=== PATIENT | male | born 1955 | race Two or more races ===

== ENCOUNTER 2019-06-15 14:32 | Emergency (ER) | payer MEDICAID ==
[~2019-06-15] VITALS: Ht 177.8 cm; Wt 68.0 kg
[~2019-06-15 14:32] MED LIST: ACYCLOVIR800 MG ORAL; BACTRIM-DS1 EA ORAL; FLUOXETINE HCL20 MG ORAL; NORVIR100 MG ORAL; REYATAZ150 MG ORAL; TRUVADA 200 MG1 EAC1 ORAL
[2019-06-15 14:39] VITALS: BP 121/89
[2019-06-15] MEDS ORDERED: traMADol 50mg tab ORAL ONE (16:00)
--- NOTE | 2019-06-15 16:15 | Emergency Room Report ---
History of Present Illness General Chief Complaint: Flu Like Symptoms Source: Patient Present Illness HPI 64 YO Male presents to the ED c/o Cough with increased sputum production x 2 weeks with chills, 10/10 in severity body aches and increased fatigue. Hx of AIDS, HTN, Neuropathic pain, Heart Murmur, and HTN. Pt. reports he has an unknown CD4 count. He reports he is taking his antiretroviral meds. He denies fevers or chills. he denies feeling SOB. Denies CP or palpitations. He is also c/o needing medication refills for his current exacerbation of chronic psoriasis symptoms, in addition to Lyrica refill request for hx of neuropathic pain. Denies recent travel. Denies contact with persons who have tested positive for or are under investigation/quarantine for COVID-19. Denies CP, Palpitations, LOC, AMS, dizziness, Changes in Vision, Sensation, paresthesias, or a sudden severe headache. COVID-19 risk:Contact w/high r: No COVID-19 risk:Travel to affect: No Has patient experienced [place]: Yes Coronavirus symptoms experienc: Shortness of Breath, Cough, Runny Nose, Flu- Like Symptoms Allergies: Coded Allergies: GABAPENTIN (Verified Allergy, Severe, 12/25/14) Patient History Past Medical History: see triage record, HIV Past Surgical History: none Pertinent Family History: none Social History: Reports: smoking Reviewed Nursing Documentation: PMH: Agreed; PSxH: Agreed Nursing Documentation-PMH Past Medical History: No History, Except For Hx Hypertension: Yes - murmur Hx Neurological Problems: Yes - BLE neuropathy, slipped disk Review of Systems All Other Systems: negative except mentioned in HPI Physical Exam Vital Signs Date Time Temp Pulse Resp B/P (MAP) Pulse Ox O2 Delivery O2 Flow Rate FiO2 06/15/19 14:39 98.2 83 16 121/89 (100) 96 Room Air Sp02 EP Interpretation: reviewed, normal General Appearance: no apparent distress, alert, GCS 15, non-toxic Head: normocephalic, atraumatic Eyes: bilateral eye normal inspection, bilateral eye PERRL ENT: hearing grossly normal, normal voice, uvula midline, moist mucus membranes Neck: full range of motion Respiratory: chest non-tender, lungs clear, normal breath sounds, no rhonchi, no respiratory distress, no accessory muscle use, no wheezing, speaking full sentences Cardiovascular #1: regular rate, rhythm, no edema, normal capillary refill Gastrointestinal: non tender, soft Musculoskeletal: normal range of motion, gait/station normal, non-tender Neurologic: alert, motor strength/tone normal, oriented x3, sensory intact, responsive, speech normal Psychiatric: judgement/insight normal Skin: rash - dry scaly diffuse hyperpigmented rash on bilateral LE's and UE's prominently over extensor surfaces. No blisters or vessicles Lymphatic: no adenopathy Medical Decision Making PA Attestation Dr. Marin is my supervising Physician whom patient management has been discussed with. Diagnostic Impression: Primary Impression: Bronchopneumonia Additional Impressions: Psoriasis Neuropathic pain ER Course Pt. presents to the ED with s/sx c/w URI in the setting of a local COVID-19 Outbreak. - This PT. was triaged outside the facility in a designated staging area and placed into isolation tent. - Full PPE for airborne/droplet isolation (booties, Gown, doubled nitrile gloves, N95 Mask covered by Surgical mask w. face shield, and hair net) was donned in the designated HCP staging area prior to pt. interaction. 64 YO Male presents to the ED c/o Cough with increased sputum production x 2 weeks with chills, 10/10 in severity body aches and increased fatigue. Hx of AIDS, HTN, Neuropathic pain, Heart Murmur, and HTN. Pt. reports he has an unknown CD4 count. He reports he is taking his antiretroviral meds. He denies fevers or chills. he denies feeling SOB. Denies CP or palpitations. He is also c/o needing medication refills for his current exacerbation of chronic psoriasis symptoms, in addition to Lyrica refill request for hx of neuropathic pain. Denies recent travel. Denies contact with persons who have tested positive for or are under investigation/quarantine for COVID-19. Denies CP, Palpitations, LOC, AMS, dizziness, Changes in Vision, Sensation, paresthesias, or a sudden severe headache. Ddx considered but are not limited to URI, pneumonia, PE, strep pharyngitis, meningitis, COVID-19 Vital signs: Pt. is afebrile, the remaining VS are WNL H&PE are most consistent with Bronchitis in an immuno compromised individual with increased sputum suspicious for a bronchopneumonia. ORDERS: none required at this time, the diagnosis is clinical ED INTERVENTIONS: -Tramadol 50mg PO PT. CURES was reviewed, It does not appear that he is not regularly rx'd Lyrica , he has multiple recent pain medication fills all from different providers. Pt. is NAD, non-toxic in appearance, Not in respiratory distress and stable for continued outpatient treatment with close follow up. DISCHARGE: At this time pt. is stable for d/c to home. Will provide printed patient care instructions, and any necessary prescriptions. Care plan and follow up instructions have been discussed with the patient prior to discharge. Last Vital Signs Date Time Temp Pulse Resp B/P (MAP) Pulse Ox O2 Delivery O2 Flow Rate FiO2 06/15/19 14:45 83 16 Room Air 06/15/19 14:39 98.2 121/89 96 Disposition: HOME, SELF-CARE Condition: Stable Scripts Acetaminophen* (TYLENOL EXTRA STRENGTH*) 500 Mg Tablet 500 MG ORAL Q8H, #20 TAB 0 Refills Prov: Ruthie Wiggins 06/15/19 Triamcinolone Acet (Triamcinolone Acetonide) 60 Ml Lotion 1 APPLIC TOPIC DAILY, #60 ML Prov: Ruthie Wiggins 06/15/19 Guaifenesin (Mucinex) 1,200 Mg Tab.er.12h 1200 MG PO Q12HR for 10 Days, #20 TAB Prov: Ruthie Wiggins 06/15/19 D-Methorphan Hb/Prometh Hcl* (PROMETHAZINE-DM SYRUP*) 118 Ml Syrup 5 ML ORAL Q6H PRN for For Cough, #120 ML 0 Refills Prov: Ruthie Wiggins 06/15/19 Levofloxacin* (LEVAQUIN*) 750 Mg Tablet 750 MG ORAL DAILY for 5 Days, #5 TAB Prov: Ruthie Wiggins 06/15/19 Referrals: [facility] Patient Instructions: Neuropathic Pain, Upper Respiratory Infection, Adult, [id number] Additional Instructions: Take medications as directed. Follow up with a Primary Care Provider in 3-5 days, even if your symptoms have resolved. --Please review list of primary care clinics, if you do not already have a primary care provider Return sooner to ED if new symptoms occur, or current symptoms become worse. - Please note that this Emergency Department Report was dictated using [employer] apprentice technology software, occasionally this can lead to erroneous entry secondary to interpretation by the dictation equipment. Ruthie Wiggins Jun 15, 2019 16:15
[2019-06-15] MEDS ORDERED: KENALOG 0.1% LO60 ML TOPIC (16:17)
[2019-06-15] MEDS ORDERED: LEVAQUIN750 MG ORAL (16:17)
[2019-06-15] MEDS ORDERED: MUCINEX1200 MG PO (16:17)
[2019-06-15] MEDS ORDERED: PROMETHAZINE-D118 ML ORAL (16:17)
[2019-06-15] MEDS ORDERED: TYLENOL EXTRA500 MG ORAL (16:18)
[2019-06-15 16:50] VITALS: BP 132/75
== END 2019-06-15 17:30 | disposition home or self-care (01) ==
LOC: EMR 17:24
DX: J18.0 Bronchopneumonia, unspecified organism (principal); L40.9 Psoriasis, unspecified; M79.2 Neuralgia and neuritis, unspecified; I10 Essential (primary) hypertension; B20 Human immunodeficiency virus [HIV] disease
CPT/HCPCS: 99282